=== PATIENT | female | born 1985 | race Caucasian/White ===

== ENCOUNTER 2021-04-21 02:19 | Emergency (ER) | payer MEDICAID ==
[~2021-04-21] VITALS: Ht 160 cm; Wt 65.8 kg
[2021-04-21 02:27] VITALS: BP_SYST 141
--- NOTE | 2021-04-21 02:27 | NUR ---
Patient to ER bed 7 to gown for evaluation. Side rails up. Report given to GRACE MENDOZA.
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
--- NOTE | 2021-04-21 02:32 | NUR ---
Seen and examined by Dr. Louis, ER Attending
[2021-04-21] MEDS ORDERED: KETOROLAC TROMETHAMINE 60 MG/2 ML VIAL IM ONE (02:45)
[2021-04-21] MEDS ORDERED: MORPHINE 4 MG INJ. 4 MG/ML VIAL IM ONE (02:45)
[2021-04-21] MEDS ORDERED: MORPHINE 4 MG INJ. 4 MG/ML VIAL ONE (02:45)
--- NOTE | 2021-04-21 02:55 | NUR ---
Medications given as ordered, health teaching provided and verbalized understanding
--- NOTE | 2021-04-21 03:02 | NUR ---
Urine revealed negative
[2021-04-21] MEDS ORDERED: HYDR-3917 PO (03:12)
[2021-04-21 03:27] VITALS: BP_SYST 139
--- NOTE | 2021-04-21 03:27 | NUR ---
Patient given written and verbal discharge instructions and verbalizes understanding. ER MD discussed with patient the results and treatment provided. Patient in stable condition. ID arm band removed. Rx of [place] given. Patient educated on pain management and to follow up with PMD. Pain Scale 3/10. Opportunity for questions provided and answered. Medication side effect fact sheet provided.
== END 2021-04-21 03:27 | disposition home or self-care (01) ==
LOC: SED 02:19
DX: H72.93 Unspecified perforation of tympanic membrane, bilateral (principal)
CPT/HCPCS: 81025; 96372; 99284; J1885; J2270

== ENCOUNTER 2023-03-30 16:13 | Emergency (ER) | payer MEDICAID ==
[~2023-03-30] VITALS: Ht 157.5 cm; Wt 63.5 kg
[~2023-03-30 16:13] MED LIST: HYDR-3917 PO
[2023-03-30 16:15] VITALS: BP_SYST 150
--- NOTE | 2023-03-30 16:20 | NUR ---
Patient triaged and placed in waiting room. VSS and patient appears in no acute distress at this time. Accompanied by FRIEND, awaiting available bed, and MD notified of need for MSE.
--- NOTE | 2023-03-30 16:45 | NUR ---
PT STATES 2 DAYS WITH LEFT LOWER EXTREMITY CELLULITIS, DENIES ANY TRAUMA OR INJURY.
--- NOTE | 2023-03-30 18:05 | NUR ---
BROUGHT BACK TO BED HALLWAY CHAIR AND WILL ASSUME CARE
--- NOTE | 2023-03-30 18:10 | NUR ---
DR ARRINGTON AT BEDSIDE FOR EVALUATION.
--- NOTE | 2023-03-30 18:38 | NUR ---
Pamela jimenez in [facility] - 03/30/23 at 1838 by DEMETRIA PT STATES 2 DAYS WITH LEFT LOWER EXTREMITY CELLULITIS, DENIES ANY TRAUMA OR INJURY.
[2023-03-30] MEDS ORDERED: ceFAZolin SODIUM 1 GM VIAL IM ONE (18:45)
[2023-03-30] MEDS ORDERED: CEPH-548 PO (19:36)
[2023-03-30 19:42] VITALS: BP_SYST 150
--- NOTE | 2023-03-30 19:43 | NUR ---
Patient given written and verbal discharge instructions and verbalizes understanding. ER MD discussed with patient the results and treatment provided. Patient in stable condition. ID arm band removed. Rx of CEPHALEXIN given. Patient educated on pain management and to follow up with PMD. Pain Scale 0. Opportunity for questions provided and answered. Medication side effect fact sheet provided.
== END 2023-03-30 19:42 | disposition home or self-care (01) ==
LOC: SED 16:13
DX: L03.116 Cellulitis of left lower limb (principal); Z79.899 Other long term (current) drug therapy
CPT/HCPCS: 99283; 96372; J0690